=== PATIENT | female | born 1990 ===

== ENCOUNTER → 2016-12-10 | Outpatient (REF) | LOC: COL.CARD 12:10 | DX: Z02.89 Encounter for other administrative examinations (principal) ==

== ENCOUNTER 2018-11-07 08:35 | Outpatient (CLI) | payer OTHER ==
[~2018-11-07] VITALS: Ht 170.2 cm; Wt 86.8 kg
--- NOTE | 2018-11-07 08:35 | NUR ---
Presents to labor and delivery. States having swelling in legs. Also states cramping like charley horse in the left leg the last couple of mornings. Also this morning states chest kind of sore when taking breathes in. States has had anxiety in the past that would cause this.
[2018-11-07 08:49] VITALS: BP 121/72; PULSE 78; TEMP 98.6
[2018-11-07] MEDS ORDERED: PRENATAL (08:53)
[2018-11-07 09:00] VITALS: BP 113/63; PULSE 73
--- NOTE | 2018-11-07 09:30 | NUR ---
Discharge instructions given, verbalizes understanding. Dismissed to home with instructions.
== END 2018-11-07 09:30 | disposition home or self-care (01) ==
LOC: LDR 08:35 → LDRO 08:35
DX: O26.893 Other specified pregnancy related conditions, third trimester (principal); M79.89 Other specified soft tissue disorders; Z3A.33 33 weeks gestation of pregnancy

== ENCOUNTER 2018-12-31 06:49 | Inpatient (IN) | payer OTHER ==
[~2018-12-31] VITALS: Ht 168.3 cm; Wt 95.0 kg
[~2018-12-31 06:49] MED LIST: PRENATAL
[2018-12-31 21:30] VITALS: BP 132/85; PULSE 81
[2018-12-31 21:45] VITALS: BP 129/88; PULSE 70
[2018-12-31 22:07] LABS: BASO % 0.3 % (0.0-2.0); EOS # 0.2 (0.0-0.7); EOS % 1.5 % (0-4.0); GRAN # 8.3 (1.4-6.5); GRAN % 69.8 % (42.2-75.2); HEMOGLOBIN 11.2 g/dl (12.5-16.0); LYMPH # 2.4 (1.2-3.4); LYMPH % 19.8 % (20.0-51.0); MEAN CELL VOLUME 93 fl (80.0-100.0); MEAN CORPUSCULAR HEMOGLOBIN 30 pg (27.0-31.0); MEAN CORPUSCULAR HGB CONC 33 g/dl (33.0-37.0); MEAN PLATELET VOLUME 12.3 fl (7.4-10.4); MONO % 8.1 % (1.7-9.3); PLATELET COUNT 149 K/mm3 (130-400); RED BLOOD COUNT 3.68 M/mm3 (4.10-5.30); REDCELL DISTRIBUTION WIDTH-CV 12.6 % (11.5-14.5)
[2018-12-31 22:09] LABS: HEMATOCRIT 34.3 % (37.0-47.0)
[2018-12-31 22:15] VITALS: BP 125/81; PULSE 66
[2018-12-31 22:45] VITALS: BP 125/81; PULSE 62
[2018-12-31 23:15] VITALS: BP 120/82; PULSE 71
[2018-12-31 23:45] VITALS: BP 126/76; PULSE 63
[2019-01-01] VITALS (67 sets, daily range): BP systolic 88–149; BP diastolic 42–98; PULSE 57–99; TEMP 97.7–99
--- NOTE | 2019-01-01 08:35 | NUR ---
Dr Fernández at bedside to assess patient and FHR strip. SVE-/-3 and unable to AROM at this time. Plan of care discussed. 1112: Patient sitting forward and FHR monitor tracing maternal heart rate. Monitor ajusted.
--- NOTE | 2019-01-01 13:20 | NUR ---
Patient sitting on edge of bed and [employer] at bedside for placement of epidural. Difficulty tracing FHR at this time due to maternal position. Plan of care discussed. 1335: Test dose given and patient tolerates well. 1341: Patient repositioned and precautions/plan of care discussed.
--- NOTE | 2019-01-01 15:00 | NUR ---
1502: Patient turned wedged right and left leg resting in stirrup and FHR decreasing to 120bpm. 1507: FHR decreasing to 90-100bpm for approx. 1 minute and patient turned left and FHR increases to 115bpm and quickly decreases to 70bpm for approx. 1 minute and patient sits up and FHR increases to 130-140bpm. Dr. Fernández called and notified. 1530: FHR continues to have recurrent late decelerations. SVE:1-/-2
--- NOTE | 2019-01-01 15:45 | NUR ---
FHR baseline 130bpm and decreasing to 80-90bpm for approx. 1-2 minutes and returning to baseline.
--- NOTE | 2019-01-01 15:52 | NUR ---
Pitocin off at this time and patient updated on plan of care.
--- NOTE | 2019-01-01 16:10 | NUR ---
FHR continues to have subtle late decelerations and patient being repositioned and Dr. Fernández aware. 1715: Dr. Fernández at bedside to assess patient and FHR strip. SVE-1-2//-2. Dr. Fernández discusses that she recommends a at this time and Patient agrees with proceure. Precautions/risks/plan of care discussed. Patient prepped for surgery. 1740: Patient off monitor and to OR via bed, 1742: Doppler of FHR-125bpm
[2019-01-02 01:15] VITALS: BP 128/75; PULSE 72; TEMP 97.7
[2019-01-02 05:30] VITALS: BP 130/74; PULSE 72; TEMP 98
[2019-01-02 08:27] VITALS: BP 118/68; PULSE 62; TEMP 98
[2019-01-02] MEDS ORDERED: IBU800 M1 PO (08:31)
[2019-01-02] MEDS ORDERED: PERCOCET 325 MG1 TA2 PO (08:32)
[2019-01-02 17:41] VITALS: BP 119/62; PULSE 71; TEMP 98
[2019-01-02 20:00] VITALS: BP 138/80; PULSE 85; TEMP 98.3
[2019-01-03 09:30] VITALS: BP 126/67; PULSE 87; TEMP 98.3
--- NOTE | 2019-01-03 13:57 | NUR ---
Rests in bed, alert. Eats lunch, denies any needs at this time.
--- NOTE | 2019-01-03 17:00 | NUR ---
Rests in bed, alert. 1745 Ibuprofen 800 mg, percocet 5/325 mg given per request and as ordered.
[2019-01-03 17:45] VITALS: BP 142/78; PULSE 86; TEMP 98.2
--- NOTE | 2019-01-03 18:00 | NUR ---
Rests in bed feeding baby. Discharge instructions given, verbalizes understanding.
== END 2019-01-03 18:40 | disposition home or self-care (01) | DRG 788 ==
LOC: LDR 06:49 → OB 21:01
PROVIDERS: ADMIT Student in an Organized Health Care Education/Training Program
PROC: 10D00Z1 Extraction of Products of Conception, Low, Open Approach (ICD-10-PCS; principal; 2019-01-01)
PROC: 3E0P7VZ Introduction of Hormone into Female Reproductive, Via Natural or Artificial Opening (ICD-10-PCS; 2019-01-01)
DX: O48.0 Post-term pregnancy (principal); O99.344 Other mental disorders complicating childbirth; O99.62 Diseases of the digestive system complicating childbirth; O61.9 Failed induction of labor, unspecified; O62.0 Primary inadequate contractions; O12.04 Gestational edema, complicating childbirth; K21.9 Gastro-esophageal reflux disease without esophagitis; F41.9 Anxiety disorder, unspecified; O76 Abnormality in fetal heart rate and rhythm complicating labor and delivery; Z3A.40 40 weeks gestation of pregnancy; Z37.0 Single live birth
CPT/HCPCS: OP; J0690; J1885; J1940; J2270; J2405; J2590; J3010; J7120